=== PATIENT | female | born 1980 | race American Indian/Alaskan Native ===

== ENCOUNTER 2019-01-22 20:24 | Emergency (ER) | payer SELFPAY ==
[2019-01-22 22:10] VITALS: BP 161/99
--- NOTE | 2019-01-23 00:22 | Emergency Department Report ---
ED General Adult HPI - General Chief complaint: High BP Stated complaint: FEVER, ELEVATED BLOOD PRESSURE Time Seen by Provider: 01/22/19 21:53 Source: patient Mode of arrival: Ambulatory Limitations: No Limitations - History of Present Illness Initial comments: 30-year-old -[place] female, noncompliant with her hypertensive regimen since emerge department complaining. States she has not taken her medication list today's dose of medication. She'll take half the dose and was noted elevated. Reports no chest pain or palpitations. Does have some head pressure. No blurry vision, no loss of vision, no tinnitus. Reports no palpitations. No hemoptysis, no hematemesis, no hematochezia. She is afebrile no acute worse or distress Radiation: non-radiation Severity scale (0 -10): 0 Consistency: constant Improves with: none Worsens with: none - Related Data Allergies Allergy/AdvReac Type Severity Reaction Status Date / Time No Known Allergies Allergy Unverified 01/22/19 20:35 ED Review of Systems ROS: Stated complaint: FEVER, ELEVATED BLOOD PRESSURE Other details as noted in HPI Comment: All other systems reviewed and negative ED Past Medical Hx - Past Medical History Previous Medical History?: Yes Hx Hypertension: Yes - Surgical History Past Surgical History?: Yes Additional Surgical History: , Hemorrhaged afterwards surgery and had multiple blood transfusions - Social History Smoking Status: Current Every Day Smoker Substance Use Type: None ED Physical Exam - General Limitations: No Limitations General appearance: alert, in no apparent distress - Head Head exam: Present: atraumatic, normocephalic - Eye Eye exam: Present: normal appearance, PERRL, EOMI, other (negative. The funduscopic examination) Pupils: Present: normal accommodation - ENT ENT exam: Present: normal exam, mucous membranes moist - Neck Neck exam: Present: normal inspection, full ROM. Absent: tenderness, meningismus, lymphadenopathy - Respiratory Respiratory exam: Present: normal lung sounds bilaterally. Absent: respiratory distress - Cardiovascular Cardiovascular Exam: Present: regular rate, normal rhythm. Absent: systolic mur mur, diastolic murmur, rubs, gallop - GI/Abdominal GI/Abdominal exam: Present: soft, normal bowel sounds - Extremities Exam Extremities exam: Present: normal inspection - Back Exam Back exam: Present: normal inspection - Neurological Exam Neurological exam: Present: alert, oriented X3, CN II-XII intact, normal gait, other (Romberg negative. Normal finger to nose) - Psychiatric Psychiatric exam: Present: normal affect, normal mood - Skin Skin exam: Present: warm, dry, intact, normal color. Absent: rash ED Course Vital Signs 01/22/19 01/22/19 21:01 22:09 Temperature 98.7 F 98.3 F Pulse Rate 72 60 Respiratory 16 18 Rate Blood Pressure 164/99 Blood Pressure 161/99 [Right] O2 Sat by Pulse 100 100 Oximetry Critical care attestation.: If time is entered above; I have spent that time in minutes in the direct care of this critically ill patient, excluding procedure time. ED Disposition Clinical Impression: HTN (hypertension) Disposition: DC-01 TO HOME OR SELFCARE Is pt being admited?: No Does the pt Need Aspirin: No Condition: Stable Instructions: Hypertension (ED) Referrals: SHAMIKA BARKER MD [Primary Care Provider] - 3-5 Days
== END 2019-01-23 00:20 | disposition home or self-care (01) ==
LOC: ED 20:24
DX: I10 Essential (primary) hypertension (principal); F17.200 Nicotine dependence, unspecified, uncomplicated; Z98.890 Other specified postprocedural states; Z91.14 Patient's other noncompliance with medication regimen
CPT/HCPCS: 99282